=== PATIENT | male | born 1960 | race Caucasian/White ===

== ENCOUNTER 2016-07-29 09:42 | Emergency (ER) | payer OTHER ==
[2016-07-29 09:51] VITALS: TEMP 98.7; BMI 29.2
--- NOTE | 2016-07-29 11:05 | PDOC ---
History of Present Illness - General History Source: Patient Exam Limitations: No Limitations - History of Present Illness Initial Comments: CHIEF COMPLAINT: 56 y/o afebrile male with PMH GERD, NIDDM c/o abdominal pain for over 2 months. HISTORY OF PRESENT ILLNESS: The patient describes the pain as intermittent discomfort. He states he's had an endoscopy, colonoscopy, CT of the abd/pelvis and an xray, all of which were normal. The patient denies f/c, n/v/d, constipation, CP, SOB, back pain, hematuria, dysuria. He hasn't taken anything for pain. PCP is Dr. Hackett GI is Dr. Coronel Vital signs on arrival are notable for pulse of 108. REVIEW OF SYSTEMS: GENERAL/CONSTITUTIONAL: No fever/chills. No weakness. No weight change. HEAD, EYES, EARS, NOSE AND THROAT: No change in vision. No ear pain or discharge. No sore throat. CARDIOVASCULAR: No chest pain or shortness of breath. RESPIRATORY: No cough, wheezing, or hemoptysis. GASTROINTESTINAL: +abd pain. No nausea, vomiting, diarrhea, constipation. GENITOURINARY: No dysuria, frequency, or change in urination. MUSCULOSKELETAL: No joint or muscle swelling or pain. No neck or back pain. SKIN: No rash or easy bruising. NEUROLOGIC: No headache, vertigo, loss of consciousness, or loss of sensation. PHYSICAL EXAM: GENERAL: The patient is awake, alert, and fully oriented, in no acute distress. He is well appearing, ambulatory, in NAD or obvious discomfort. HEAD: Normal with no signs of trauma. ENT: Pupils equal, round and reactive to light, extraocular movements intact, sclera anicteric, conjunctiva clear. Neck supple. LUNGS: Clear to auscultation bilaterally. Normal excursion. No respiratory distress or use of accessory muscles. CV: RRR, S1/S2, no MRG. Cap refill < 2 sec. ABDOMEN: Soft, non-distended, non-tender even to deep palpation, no hepatomegaly or splenomegaly, no masses. BACK: No CVA TTP b/l. EXTREMITIES: Normal range of motion, no edema. NEUROLOGICAL: Normal speech, normal gait. CN II-XII grossly intact. PSYCH: Normal mood, normal affect. SKIN: Warm, dry, normal turgor, no rashes or lesions noted. <Cari Kerns - Last Filed: 07/29/16 13:09> <Ike Gaytan - Last Filed: 07/29/16 22:03> - General Chief Complaint: Pain Stated Complaint: ABD PAIN Time Seen by Provider: 07/29/16 10:55 Past History - Past Medical History Diabetes: Yes - Family Disease History Family Disease History: Diabetes: Mother - Psycho/Social/Smoking Cessation Hx Anxiety: No Suicidal Ideation: No Smoking History: Never smoked Hx Alcohol Use: No Drug/Substance Use Hx: No Substance Use Type: None <Cari Kerns - Last Filed: 07/29/16 13:09> <Ike Gaytan - Last Filed: 07/29/16 22:03> - Past Medical History Allergies/Adverse Reactions: Allergies Allergy/AdvReac Type Severity Reaction Status Date / Time No Known Allergies Allergy Verified 07/29/16 09:51 Home Medications: Ambulatory Orders Metformin HCl 1,000 mg PO DAILY 04/24/15 Glimepiride 2 mg PO DAILY 07/29/16 *Physical Exam - Vital Signs Last Vital Signs Temp Pulse Resp BP Pulse Ox 98.7 F 108 H 20 139/88 100 07/29/16 09:47 07/29/16 09:47 07/29/16 09:47 07/29/16 09:47 07/29/16 09:47 <Cari Kerns - Last Filed: 07/29/16 13:09> - Vital Signs Last Vital Signs Temp Pulse Resp BP Pulse Ox 98.7 F 95 H 18 134/76 98 07/29/16 09:47 07/29/16 14:31 07/29/16 14:31 07/29/16 14:31 07/29/16 14:31 <Ike Gaytan - Last Filed: 07/29/16 22:03> ED Treatment Course - LABORATORY CBC & Chemistry Diagram: 07/29/16 11:25 07/29/16 11:25 <Cari Kerns - Last Filed: 07/29/16 13:09> - LABORATORY CBC & Chemistry Diagram: 07/29/16 11:25 07/29/16 11:25 - ADDITIONAL ORDERS Additional order review: Laboratory Results 07/29/16 07/29/16 11:51 11:25 Sodium 136 Potassium 4.1 Chloride 100 Carbon Dioxide 31 Anion Gap 5 L BUN 11 Creatinine 0.8 Creat Clearance w eGFR > 60 Random Glucose 189 H D Calcium 8.9 Total Bilirubin 0.4 AST 11 L D ALT 20 Alkaline Phosphatase 113 D Total Protein 8.0 Albumin 3.7 Urine Color Yellow Urine Appearance Clear Urine pH 6.0 Ur Specific [place] 1.021 Urine Protein Negative Urine Glucose (UA) 3+ H Urine Ketones Negative Urine Blood Negative Urine Nitrite Negative Urine Bilirubin Negative Urine Urobilinogen 2.0 e.u/dl Ur Leukocyte Esterase 1+ H Urine RBC 2 Urine WBC 11 Ur Epithelial Cells Rare Urine Mucus Rare 07/29/16 11:25 RBC 4.99 MCV 90.9 MCHC 34.2 RDW 13.4 MPV 8.2 Neutrophils % 57.7 Lymphocytes % 31.1 Monocytes % 6.2 Eosinophils % 4.4 D Basophils % 0.6 - Medications Given in the ED: ED Medications Discontinued Medications Generic Name Dose Route Start Last Admin Trade Name Freq PRN Reason Stop Dose Admin Ketorolac Tromethamine 60 mg 07/29/16 11:21 07/29/16 11:49 Toradol Injection - IM 07/29/16 11:22 60 mg ONCE ONE Administration <Ike Gaytan - Last Filed: 07/29/16 22:03> Medical Decision Making - Medical Decision Making A/P: 56 y/o afebrile male with abdominal pain x over 2 months. Plan is as follows: 1. Labs 2. UA 3. IM toradol Labs unremarkable The patient feels better after toradol Will discharge to home with instructions to f/u with Dr. Hackett and Dr. Coronel within 1 week Suggested he return to the ER with any worsening or concerning symptoms. The patient verbalizes understanding of all instructions, has no further questions and is awaiting discharge. <Cari Kerns - Last Filed: 07/29/16 13:09> *DC/Admit/Observation/Transfer <Cari Kerns - Last Filed: 07/29/16 13:09> - Discharge Dispostion Admit: No <Ike Gaytan - Last Filed: 07/29/16 22:03> Diagnosis at time of Disposition: Abdominal pain Qualifiers: Abdominal location: generalized Qualified Code(s): R10.84 - Generalized abdominal pain - Discharge Dispostion Disposition: HOME Condition at time of disposition: Good - Referrals Referrals: Cindi Hackett MD [Primary Care Provider] - Call tomorrow Ray Coronel MD [Staff Physician] - Call tomorrow - Patient Instructions Printed Discharge Instructions: DI for Abdominal Pain-Adult Additional Instructions: Discharge Instructions: -Take Motrin for pain with food every 6 hours if needed -Follow up with your doctor and Dr. Coronel within 1 week -Return to the ER with any worsening or concerning symptoms Print Language: SERBIAN
[2016-07-29] MEDS ORDERED: KETOROLAC TROMETHAMINE 60 MG/2 ML VIAL IM ONE (11:21)
[2016-07-29 11:43] LABS: BASOPHIL 0.6 % (0-2.0); EOSINOPHIL 4.4 % (0-4.5); MCH 31.1 pg (25.7-33.7); MCHC 34.2 g/dl (32.0-35.9); MEAN CELL VOLUME 90.9 fl (80-96); MEAN PLT VOLUME 8.2 fl (7.5-11.1); NEUTROPHILS 57.7 % (42.8-82.8); PLATELET COUNT 217 K/MM3 (134-434); RDW 13.4 % (11.9-15.9); WHITE BLOOD COUNT 9.7 K/mm3 (4.0-10.0)
[2016-07-29] MEDS ORDERED: KETOROLAC TROMETHAMINE 60 MG/2 ML VIAL ONE (11:45)
[2016-07-29 12:13] LABS: URINE APPEARANCE CLEAR; URINE BILIRUBIN NEGATIVE (NEGATIVE); URINE BLOOD NEGATIVE (NEGATIVE); URINE COLOR YELLOW; URINE GLUCOSE (UA) 3+ (NEGATIVE); URINE KETONE NEGATIVE (NEGATIVE); URINE LEUK ESTERASE 1+ (NEGATIVE); URINE NITRITE NEGATIVE (NEGATIVE); URINE PROTEIN NEGATIVE (NEGATIVE); URINE UROBILINOGEN 2.0 E.U/dl E.U./dl (0.2-1.0)
[2016-07-29 12:15] LABS: URINE MUCUS RARE; URINE RBC 2 /hpf (0-3); URINE WBC 11 /hpf (3-5)
[2016-07-29 12:31] LABS: CALCIUM 8.9 mg/dL (8.5-10.1)
[2016-07-29 12:37] LABS: ALBUMIN 3.7 g/dl (3.4-5.0); ALK PHOS 113 U/L (45-117); ANION GAP 5 (8-16); BILIRUBIN,TOTAL 0.4 mg/dL (0.2-1.0); CO2 31 mmol/L (21-32); CREATININE 0.8 mg/dL (0.7-1.3); GLUCOSE,RANDOM 189 mg/dL (74-106); SGOT/AST 11 U/L (15-37); SGPT/ALT 20 U/L (12-78)
[2016-07-29 14:32] VITALS: BP 134/76; PULSE 95
== END 2016-07-29 14:32 | disposition home or self-care (01) ==
LOC: JER 09:42
PROC: 3E0233Z Introduction of Anti-inflammatory into Muscle, Percutaneous Approach (ICD-10-PCS; principal; 2016-07-29)
DX: R10.84 Generalized abdominal pain (principal); K21.9 Gastro-esophageal reflux disease without esophagitis; E11.9 Type 2 diabetes mellitus without complications
CPT/HCPCS: 36415; 80053; 81003; 81015; 85025; 87086; 96372; 99285-25